=== PATIENT | male | born 1970 | race Caucasian/White ===

== ENCOUNTER 2021-01-24 09:38 | Emergency (ER) | payer MEDICARE ==
[~2021-01-24] VITALS: Ht 182.9 cm; Wt 96.2 kg
[~2021-01-24 09:38] MED LIST: AMBIEN10 MG PO; BENZONATATE200 MG PO; BUSPIRONE30 MG OR; BUSPIRONE5 MG PO; CYMBALTA30 MG PO; DOXEPIN HCL10 MG OR; DOXYCYC MONO100 M1 PO; DOXYCYCL HYC100 MG PO; EFFEXOR75 MG OR; KEFLEX500 MG PO; KLONOPIN1 MG PO; LEXAPRO20 MG PO; LISINOPRIL20 MG PO; LISINOPRIL40 MG PO; MACRODANTIN50 MG PO; MUCINEX600 MG PO; NEXIUM20 M1 PO; NEXIUM20 MG PO; NORCO1 TAB PO; PERCOCET 10/31 COMBO PO; PERCOCET 5/325M1 TAB PO; PHENERGAN25 MG/TAB PO; PREDNISONE20 MG PO; PROMETHAZINE12.5 MG PO; ROCEPHIN 2250 MG/VIA IM; SEROQUEL XR300 MG OR; SEROQUEL100 MG PO; SINEQUAN25 MG PO; TAMAZAPAM PO; VISTARIL25 MG PO; XANAX2 MG PO
[2021-01-24] MEDS ORDERED: KEFLEX500 M1 PO ×2 (10:34→10:41)
[2021-01-24 10:40] VITALS: BP 154/105
== END 2021-01-24 10:40 | disposition home or self-care (01) ==
LOC: ED 09:38
DX: L03.011 Cellulitis of right finger (principal); F17.210 Nicotine dependence, cigarettes, uncomplicated